=== PATIENT | female | born 1985 | race Caucasian/White ===

== ENCOUNTER → 2017-01-14 | Outpatient (CLI) | payer OTHER | LOC: LABWHC1 10:44 | PROVIDERS: ATTEND Dermatology | CPT/HCPCS: 36415; 84132 ==

== ENCOUNTER → 2017-02-24 | Outpatient (CLI) | payer OTHER | LOC: LABWHC1 15:52 | PROVIDERS: ATTEND Dermatology | DX: L70.0 Acne vulgaris (principal); D22.39 Melanocytic nevi of other parts of face | CPT/HCPCS: 36415; 84702 ==

== ENCOUNTER 2017-09-07 16:50 | Emergency (ER) | payer OTHER ==
--- NOTE | 2017-09-07 18:20 | ED ---
Abdominal Pain HPI - General Chief Complaint: Abdominal Pain Stated Complaint: Pelvic Pain Time Seen by Provider: 09/07/17 17:33 Source: patient, RN notes reviewed Mode of arrival: ambulatory Limitations: no limitations - History of Present Illness Initial Comments: This is a 32-year-old female who presents to the emergency department with chief complaint of lower abdominal pain. Patient states state every month during ovulation she has approximately 3 days of a dull ache in her right lower abdomen, which is chronic and is normal for her. She states that her last menstrual period was August 27. She began to have that dull right lower abdominal pain that she usually has but this time it has lasted longer and has increased in intensity. Patient now states she is on day 7 of the pain. She states that yesterday the pain was constant and severe. She characterizes the pain as sharp and throbbing with radiation to the right hip into proximal anterior thigh. Today her pain has been just as severe, however it is intermittent. She states that the pain is made worse with movement, putting on a pair of jeans and lying flat on her back. She states that the pain is improved when her knees are flexed and close to her body. Denies fever, chills, chest pain, shortness of breath, abdominal pain, nausea or vomiting, constipation or diarrhea, dysuria or hematuria, numbness or tingling, headache or vision changes. - Related Data Home Medications Medication Instructions Recorded Confirmed Multivitamin Powder 2 scoop PO DAILY 09/07/17 09/07/17 Allergies Allergy/AdvReac Type Severity Reaction Status Date / Time No Known Allergies Allergy Verified 09/07/17 17:37 Review of Systems ROS Statement: Those systems with pertinent positive or pertinent negative responses have been documented in the HPI. ROS Other: All systems not noted in ROS Statement are negative. Past Medical History Past Medical History: No Reported History History of Any Multi-Drug Resistant Organisms: None Reported Past Surgical History: No Surgical Hx Reported Additional Past Surgical History / Comment(s): jaw surgery Past Psychological History: Anxiety, Depression Smoking Status: Never smoker Past Alcohol Use History: Occasional Past Drug Use History: None Reported General Exam - General Exam Comments Initial Comments: General: Awake and alert, well-developed; in no apparent distress. is at bedside. HEENT: Head atraumatic, normocephalic. Pupils are equal, round and reactive to light. Extraocular movements intact. Oropharynx moist without erythema or exudate. Neck: Supple. Normal ROM. Cardiovascular: Regular rate and rhythm. No murmurs, rubs or gallops. Chest symmetrical. Respiratory: Lungs clear to auscultation bilaterally. No wheezes, rales or rhonchi. Normal respiratory effort with no use of accessory muscles. Abdomen: Soft, non-distended. Tenderness with palpation over right pelvic/ pubic area. No rigidity, rebound or guarding. Normal bowel sounds in all 4 quadrants. Musculoskeletal: Normal ROM, no tenderness bilateral upper and lower extremities. No pedal edema. Skin: [place], warm and dry without rashes or lesions. Neurological: Alert and oriented x3. CN II-XII grossly intact. Speech is fluent and answers are appropriate. No focal neuro deficits. Psychiatric: Normal mood and affect. No overt signs of depression or anxiety noted. Limitations: no limitations Course Vital Signs 09/07/17 09/07/17 09/07/17 16:57 19:01 21:01 Temperature 98.0 F Pulse Rate 103 H 75 69 Respiratory 18 18 18 Rate Blood Pressure 146/86 128/68 136/80 O2 Sat by Pulse 99 100 100 Oximetry - Reevaluation(s) Reevaluation #1: Ultrasound and laboratory findings were discussed with patient. Discussed discharge home with follow-up with her rate examiner or computed tomography scan of the abdomen and pelvis. Patient states that she does feel like there is something wrong and would like to follow through with computed tomography scan. 09/07/17 19:48 Medical Decision Making - Medical Decision Making This is a 33-year-old female presents to the emergency department with chief complaint of abdominal pain. CBC, CMP and UA were within normal limits. Transvaginal ultrasound revealed several nabothian cysts of the cervix and a 2.5 cm follicle or small ovarian cyst of left ovary. Nothing to account for patient's symptoms. Discussed these findings with the patient who requested to receive a computed tomography scan because she felt that there "is something wrong." Computed tomography scan revealed no acute abnormalities. No evidence for appendicitis and nothing that correlates with patient's current symptoms. Findings were discussed with patient. Recommended follow-up with her [employer] within 1-2 days. Patient is in agreement with plan and voices understanding. All questions were answered. - Lab Data Result diagrams: 09/07/17 18:24 09/07/17 18:24 Lab Results 09/07/17 09/07/17 09/07/17 Range/Units 18:24 18:24 18:49 WBC 10.1 (3.8-10.6) k/uL RBC 4.29 (3.80-5.40) m/uL Hgb 13.0 (11.4-16.0) gm/dL Hct 39.5 (34.0-46.0) % MCV 92.1 (80.0-100.0) fL MCH 30.4 (25.0-35.0) pg MCHC 33.0 (31.0-37.0) g/dL RDW 13.4 (11.5-15.5) % Plt Count 254 (150-450) k/uL Neutrophils % 72 % Lymphocytes % 17 % Monocytes % 6 % Eosinophils % 3 % Basophils % 1 % Neutrophils # 7.3 (1.3-7.7) k/uL Lymphocytes # 1.8 (1.0-4.8) k/uL Monocytes # 0.6 (0-1.0) k/uL Eosinophils # 0.3 (0-0.7) k/uL Basophils # 0.1 (0-0.2) k/uL Sodium 139 (137-145) mmol/L Potassium 4.3 (3.5-5.1) mmol/L Chloride 103 (98-107) mmol/L Carbon Dioxide 26 (22-30) mmol/L Anion Gap 10 mmol/L BUN 12 (7-17) mg/dL Creatinine 0.70 (0.52-1.04) mg/dL Est GFR (MDRD) Af Amer >60 (>60 ml/min/1.73 sqM) Est GFR (MDRD) Non-Af >60 (>60 ml/min/1.73 sqM) Glucose 87 (74-99) mg/dL Calcium 9.6 (8.4-10.2) mg/dL Total Bilirubin 0.5 (0.2-1.3) mg/dL AST 29 (14-36) U/L ALT 38 (9-52) U/L Alkaline Phosphatase 68 (38-126) U/L Total Protein 7.0 (6.3-8.2) g/dL Albumin 4.1 (3.5-5.0) g/dL Amylase 40 (30-110) U/L Lipase 119 (23-300) U/L Urine Color Urine Appearance (Clear) Urine pH (5.0-8.0) Ur Specific [place] (1.001-1.035) Urine Protein (Negative) Urine Glucose (UA) (Negative) Urine Ketones (Negative) Urine Blood (Negative) Urine Nitrite (Negative) Urine Bilirubin (Negative) Urine Urobilinogen (<2.0) mg/dL Ur Leukocyte Esterase (Negative) Urine RBC (0-5) /hpf Urine WBC (0-5) /hpf Ur Squamous Epith Cells (0-4) /hpf Amorphous Sediment (None) /hpf Urine Mucus (None) /hpf Urine HCG, Qual Not Detected (Not Detectd) 09/07/17 Range/Units 18:49 WBC (3.8-10.6) k/uL RBC (3.80-5.40) m/uL Hgb (11.4-16.0) gm/dL Hct (34.0-46.0) % MCV (80.0-100.0) fL MCH (25.0-35.0) pg MCHC (31.0-37.0) g/dL RDW (11.5-15.5) % Plt Count (150-450) k/uL Neutrophils % % Lymphocytes % % Monocytes % % Eosinophils % % Basophils % % Neutrophils # (1.3-7.7) k/uL Lymphocytes # (1.0-4.8) k/uL Monocytes # (0-1.0) k/uL Eosinophils # (0-0.7) k/uL Basophils # (0-0.2) k/uL Sodium (137-145) mmol/L Potassium (3.5-5.1) mmol/L Chloride (98-107) mmol/L Carbon Dioxide (22-30) mmol/L Anion Gap mmol/L BUN (7-17) mg/dL Creatinine (0.52-1.04) mg/dL Est GFR (MDRD) Af Amer (>60 ml/min/1.73 sqM) Est GFR (MDRD) Non-Af (>60 ml/min/1.73 sqM) Glucose (74-99) mg/dL Calcium (8.4-10.2) mg/dL Total Bilirubin (0.2-1.3) mg/dL AST (14-36) U/L ALT (9-52) U/L Alkaline Phosphatase (38-126) U/L Total Protein (6.3-8.2) g/dL Albumin (3.5-5.0) g/dL Amylase (30-110) U/L Lipase (23-300) U/L Urine Color Yellow Urine Appearance Cloudy H (Clear) Urine pH 7.0 (5.0-8.0) Ur Specific [place] 1.007 (1.001-1.035) Urine Protein Negative (Negative) Urine Glucose (UA) Negative (Negative) Urine Ketones Negative (Negative) Urine Blood Negative (Negative) Urine Nitrite Negative (Negative) Urine Bilirubin Negative (Negative) Urine Urobilinogen <2.0 (<2.0) mg/dL Ur Leukocyte Esterase Negative (Negative) Urine RBC 1 (0-5) /hpf Urine WBC 1 (0-5) /hpf Ur Squamous Epith Cells 1 (0-4) /hpf Amorphous Sediment Occasional H (None) /hpf Urine Mucus Rare H (None) /hpf Urine HCG, Qual (Not Detectd) - Radiology Data Radiology results: report reviewed Transvaginal ultrasound impression: No significant finding is seen to account for patient's symptoms. CT abdomen and pelvis impression: No significant acute findings seen to account for patient's current symptoms. No CT evidence for acute appendicitis. Disposition Clinical Impression: Abdominal pain Disposition: HOME SELF-CARE Condition: Good Instructions: Abdominal Pain (ED) Additional Instructions: Please follow up with primary care provider within 1-2 days. Return to emergency department if symptoms should worsen or any concerns arise. Referrals: None,Stated [Primary Care Provider] - 1-2 days Time of Disposition: 22:20
[2017-09-07 18:34] LABS: Basophils # (A) 0.1 k/uL (0-0.2); Basophils % (A) 1 %; CH 30.8; CHCM 33.5; Eosinophils # (A) 0.3 k/uL (0-0.7); Eosinophils % (A) 3 %; HCT 39.5 % (34.0-46.0); Luc # (Auto) 0.11; Luc % (Auto) 1; Lymphocytes # (A) 1.8 k/uL (1.0-4.8); Lymphocytes % (A) 17 %; MCH 30.4 pg (25.0-35.0); MCV 92.1 fL (80.0-100.0); Mean Platelet Volume 6.8; Monocytes # (A) 0.6 k/uL (0-1.0); Monocytes % (A) 6 %; Neutrophils # (A) 7.3 k/uL (1.3-7.7); Neutrophils % (A) 72 %; RBC 4.29 m/uL (3.80-5.40); RDW 13.4 % (11.5-15.5); WBC 10.1 k/uL (3.8-10.6); WBC (Perox) 10.37
[2017-09-07 18:46] LABS: ALT 38 U/L (9-52); AST 29 U/L (14-36); Alkaline Phosphatase 68 U/L (38-126); Amylase 40 U/L (30-110); Anion Gap 10 mmol/L; Blood Urea Nitrogen 12 mg/dL (7-17); Calcium 9.6 mg/dL (8.4-10.2); Carbon Dioxide 26 mmol/L (22-30); Chloride 103 mmol/L (98-107); Glucose 87 mg/dL (74-99); Non-African American GFR(MDRD) >60 (>60 ml/min/1.73 sqM); Potassium 4.3 mmol/L (3.5-5.1); Sodium 139 mmol/L (137-145); Total Bilirubin 0.5 mg/dL (0.2-1.3)
[2017-09-07 19:08] LABS: Amorphous Sediment,Urine Occasional /hpf; Appearance,Urine Cloudy (Clear); Bilirubin,Urine Negative (Negative); Glucose,Urine (UA) Negative (Negative); Ketones,Urine Negative (Negative); Leukocyte Esterase,Urine Negative (Negative); Mucus,Urine Rare /hpf; Nitrite,Urine Negative (Negative); Particle Count 4539; Protein,Urine Negative (Negative); RBC,Urine 1 /hpf (0-5); Specific Gravity,Urine 1.007 (1.001-1.035); Squamous Epithelial Cell,Urine 1 /hpf (0-4); UA Billing (MACRO vs. MICRO) MICRO; Urobilinogen,Urine <2.0 mg/dL (<2.0); WBC,Urine 1 /hpf (0-5)
--- NOTE | 2017-09-07 19:35 | US ---
EXAMINATION TYPE: US transvaginal DATE OF EXAM: 09/07/2017 COMPARISON: NONE CLINICAL HISTORY: Pain. Pelvic pain x 7 days TECHNIQUE: Transvaginal (TV) Date of LMP: EXAM MEASUREMENTS: Uterus: 9.3 x 4.4 x 5.8 cm Endometrial Stripe: 0.74 cm Right Ovary: 3.1 x 2.4 x 2.6 cm Left Ovary: 3.3 x 2.3 x 2.5 cm 1. Uterus: Anteverted Nabothian cysts seen 2. Endometrium: wnl 3. Right Ovary: Anechoic with internal echoes and septations measuring 2.2 x 1.7 x 1.7 cm 4. Left Ovary: Anechoic area measuring 2.2 x 1.7 x 2.0 cm Spectral, color and waveform doppler imaging shows good arterial and venous flow within the ovaries . 5. Bilateral Adnexa: wnl 6. Posterior cul-de-sac: wnl Anechoic area with internal echoes and septations seen right ovary measuring 2.2 x 1.7 x 1.7 cm Anec hoic area left ovary measuring 2.2 x 1.7 x 2.0 cm normal color flow seen bilaterally Several nabothian cysts are seen in cervix. There is 2.2 cm cystic lesion right ovary with thin sept a along the periphery. There is 2.5 cm prominent follicle or simple small ovarian cyst left ovary. No suspicious nodularity or solid vascular component is identified neither ovary. IMPRESSION: No significant finding is seen to account for patient's symptoms.
[2017-09-07] MEDS ORDERED: IOHEXOL 350 MG/ML 25 ML BOTTLE (ORAL USE) PO PRN (19:47)
[2017-09-07] MEDS ORDERED: RX INFO: IV CONTRAST WAS GIVEN 1 EACH MISC MISCELLANE PRN (19:47)
--- NOTE | 2017-09-07 22:08 | CT ---
EXAMINATION TYPE: CT abdomen pelvis w con DATE OF EXAM: 09/07/2017 HISTORY: Right lower quadrant abdominal pain on and off x 7 months with severe pain in past week. CT DLP: 569.60mGycm Automated Exposure Control for Dose Reduction was Utilized. CONTRAST: CT scan of the abdomen and pelvis is performed with oral and with IV Contrast, patient injected with 100 mL of Omnipaque 300. COMPARISON: None. FINDINGS: LUNG BASES: No significant abnormality is appreciated. LIVER/GB: No significant abnormality is appreciated. PANCREAS: No significant abnormality is seen. SPLEEN: No significant abnormality is seen. ADRENALS: No significant abnormality is seen. KIDNEYS: No significant abnormality is seen. BOWEL: Oral contrast reaches level of the terminal ileum. There is no suspicious small or large bowel dilatation identified. Normal-appearing appendix is seen posteriorly from cecum. UTERUS/ADNEXA: Few scattered pelvic phleboliths are present. Anteverted uterus is seen. Cystic lesion s in both ovaries measuring 2.0 to 2.5 cm in size correlate with recent pelvic ultrasound. LYMPH NODES: No greater than 1cm abdominal or pelvic lymph nodes are appreciated. OSSEOUS STRUCTURES: No significant abnormality is seen. OTHER: No significant additional abnormality is seen. IMPRESSION: No significant acute finding is seen to account for patient's clinical symptoms. No CT ev idence for acute appendicitis.
[2017-09-07 22:33] VITALS: BP 130/83; PULSE 81; RESP 16; TEMP 97.8
== END 2017-09-07 22:36 | disposition home or self-care (01) ==
LOC: EC 16:50
DX: N83.202 Unspecified ovarian cyst, left side (principal); N88.8 Other specified noninflammatory disorders of cervix uteri
CPT/HCPCS: 36415; 80053; 82150; 83690; 85025; 81001; 81025; 93975; 76830; 74177; 99284; Q9967